=== PATIENT | male | born 1965 | race Caucasian/White ===

== ENCOUNTER 2019-02-09 22:03 | Outpatient (REF) | payer OTHER, SELFPAY ==
[2019-02-09 22:15] LABS: BUN 10 mg/dL (7-18); Calcium 9.1 mg/dL (8.5-10.1); Calculated LDL 103 mg/dL; Chloride 105 mmol/L (98-107); Cholesterol 162 mg/dL (50-200); Glucose 65 mg/dL (70-100); HDL Cholesterol 38 mg/dL (40-60); Potassium 4.4 mmol/L (3.5-5.1); Sodium 142 mmol/L (136-145); Triglyceride 106 mg/dL (30-150)
[2019-02-11 11:03] LABS: PSA, Screening 1.1 ng/ml (0-3.5)
== END 2019-02-09 22:23 ==
LOC: NCHCN 22:03
PROVIDERS: PCP Family Medicine; Visit Provider Family Medicine
DX: Z00.00 Encounter for general adult medical examination without abnormal findings (principal); Z13.228 Encounter for screening for other metabolic disorders; Z13.220 Encounter for screening for lipoid disorders; Z12.5 Encounter for screening for malignant neoplasm of prostate
CPT/HCPCS: 80048; 80061; 84153

== ENCOUNTER 2020-04-14 14:10 | Outpatient (REF) | payer OTHER, SELFPAY ==
[2020-04-14 22:32] LABS: Anion Gap 9.9 mmol/L (3-11); BUN 15 mg/dL (7-18); CO2 27.1 mmol/L (21.0-32.0); Calcium 9.3 mg/dL (8.5-10.1); Calculated LDL 126 mg/dL (<100); Chloride 104 mmol/L (98-107); Cholesterol 195 mg/dL (<200); Glucose 70 mg/dL (74-106); HDL Cholesterol 56 mg/dL (40-60); Potassium 4.1 mmol/L (3.5-5.1); Sodium 141 mmol/L (136-145); Triglyceride 66 mg/dL (<150)
[2020-04-17 16:19] LABS: PSA, Screening 0.9 ng/mL (0-3.5)
== END 2020-04-14 14:30 ==
LOC: NCHCN 14:10
PROVIDERS: PCP Family Medicine; Visit Provider Family Medicine
DX: Z00.00 Encounter for general adult medical examination without abnormal findings (principal); N52.9 Male erectile dysfunction, unspecified; R32 Unspecified urinary incontinence; Z12.5 Encounter for screening for malignant neoplasm of prostate; Z13.220 Encounter for screening for lipoid disorders
CPT/HCPCS: 80048; 80061; 84153

== ENCOUNTER 2021-04-17 13:08 | Outpatient (REF) | payer OTHER, SELFPAY ==
[2021-04-18 17:28] LABS: PSA, Screening 1.2 ng/mL (0.0-3.5)
[2021-04-19 13:39] LABS: Chlamydia Result Negative (Negative); GC Result Negative (Negative)
== END 2021-04-17 13:09 | disposition home or self-care (01) ==
LOC: NCHCN 13:08
PROVIDERS: PCP Family Medicine; Visit Provider Family Medicine
DX: Z11.3 Encounter for screening for infections with a predominantly sexual mode of transmission (principal); Z12.5 Encounter for screening for malignant neoplasm of prostate
CPT/HCPCS: 84153; 87491; 87591

== ENCOUNTER 2021-05-07 17:45 | Outpatient (REF) | payer OTHER, SELFPAY ==
[2021-05-07 21:55] LABS: HCT 38.3 % (40.0-50.0); HGB 12.7 g/dL (13.5-17.5); MCHC 33.2 % (32.0-36.0); MCV 90.3 fL (80-95); MPV 10.5 fL (8.0-11.0); Platelet Count 390 10^3/uL (130-400); RBC 4.24 10^6/uL (4.36-5.78); RDW 15.2 % (11.8-14.1); RDW-SD 50.4 fL
[2021-05-07 22:16] LABS: ALT 20 U/L (16-63); AST 20 U/L (15-37); Albumin 3.9 g/dL (3.4-5.0); Alkaline Phosphatase 58 U/L (46-116); Anion Gap 10.6 mmol/L (3-11); BUN 20 mg/dL (7-18); Bilirubin, Total 0.6 mg/dL (0.2-1.0); CO2 24.4 mmol/L (21.0-32.0); Chloride 104 mmol/L (98-107); Glucose 97 mg/dL (74-106); Potassium 4.4 mmol/L (3.5-5.1); Sodium 139 mmol/L (136-145); TSH 2.07 uIU/mL (0.36-3.74); Total Protein 6.9 g/dL (6.4-8.2)
[2021-05-08 10:28] LABS: Ferritin 23 ng/mL (26-388); Vitamin B12 294 pg/mL (193-986)
[2021-05-08 17:50] LABS: Folate 5.2 ng/mL (See Note)
== END 2021-05-07 17:46 | disposition home or self-care (01) ==
LOC: NCHCN 17:45
PROVIDERS: PCP Family Medicine; Visit Provider Nurse Practitioner Family
DX: F30.9 Manic episode, unspecified (principal); F43.21 Adjustment disorder with depressed mood; F41.1 Generalized anxiety disorder
CPT/HCPCS: 80053; 85027; 82607; 82728; 82746; 84443

== ENCOUNTER 2022-01-23 17:20 | Outpatient (REF) | payer OTHER, SELFPAY ==
[2022-01-24 10:41] LABS: Abs Immature Grans 0.03 10^3/uL (0.0-0.06); Absolute Basophil Count 0.06 10^3/uL (0.0-0.2); Absolute Eosinophil Count 0.14 10^3/uL (0.0-0.7); Absolute Lymphocyte Count 1.86 10^3/uL (1.2-3.4); Absolute Monocyte Count 1.15 10^3/uL (0.1-0.8); Absolute Neutrophil Count 8.06 10^3/uL (1.2-6.7); Basophils % 0.5; ESR 34 mm/hr (0-20); Eosinophils % 1.2; HCT 33.5 % (40.0-50.0); HGB 10.7 g/dL (13.5-17.5); Immature Grans % 0.3; Lymphocytes % 16.5; MCH 31.2 pg (27.0-33.0); MCHC 31.9 % (32.0-36.0); MCV 98 fL (80-95); MPV 10.1 fL (8.0-11.0); Monocytes % 10.2; Neutrophils % 71.3; Platelet Count 533 10^3/uL (130-400); RBC 3.43 10^6/uL (4.36-5.78); RDW 12.7 % (11.8-14.1); RDW-SD 45.5 fL
[2022-01-24 11:12] LABS: C-Reactive Protein 3.16 mg/dL (0.0-0.3)
[2022-01-25 11:53] LABS: Lyme Ab w Rflx to Lyme Confirm Negative (Negative)
== END 2022-01-23 17:21 | disposition home or self-care (01) ==
LOC: NCHCN 17:20
PROVIDERS: PCP Family Medicine; Visit Provider Family Medicine
DX: M35.3 Polymyalgia rheumatica (principal); M13.80 Other specified arthritis, unspecified site
CPT/HCPCS: 85652; 85025; 86140; 86618

== ENCOUNTER 2022-12-24 15:17 | Outpatient (REF) | payer BC, SELFPAY ==
[2022-12-24 21:38] LABS: HCT 44.3 % (40.0-50.0); HGB 15.3 g/dL (13.5-17.5); MCH 32.1 pg (27.0-33.0); MCHC 34.5 % (32.0-36.0); MCV 93 fL (80-95); Platelet Count 324 10^3/uL (130-400); RBC 4.77 10^6/uL (4.36-5.78); RDW 13.1 % (11.8-14.1); WBC 10.14 10^3/uL (4.4-10.8)
[2022-12-24 22:12] LABS: Iron 147 ug/dL (65-175); Total Iron Binding Capacity 242 ug/dL (250-450); Transferrin Sat 61 % (20-55)
[2022-12-24 22:39] LABS: ALT 18 U/L (16-63); AST 17 U/L (15-37); Alkaline Phosphatase 75 U/L (46-116); Anion Gap 8.7 mmol/L (3-11); BUN 16 mg/dL (7-18); Bilirubin, Total 0.7 mg/dL (0.2-1.0); CO2 25.3 mmol/L (21.0-32.0); CREATININE 1.2 mg/dL (0.70-1.30); Calcium 9.5 mg/dL (8.5-10.1); Calculated LDL 144 mg/dL (<100); Chloride 106 mmol/L (98-107); Cholesterol 222 mg/dL (<200); Estimated GFR 70.98 (mL/min/1.73m2); Ferritin 55 ng/mL (26-388); Glucose 99 mg/dL (74-106); HDL Cholesterol 61 mg/dL (40-60); Potassium 3.9 mmol/L (3.5-5.1); Sodium 140 mmol/L (136-145); Total Protein 7.4 g/dL (6.4-8.2); Triglyceride 88 mg/dL (<150); Vitamin B12 413 pg/mL (193-986)
[2022-12-25 18:54] LABS: PSA, Screening 1.1 ng/mL (<=3.5)
== END 2022-12-24 15:18 | disposition home or self-care (01) ==
LOC: NCHCN 15:17
PROVIDERS: PCP Family Medicine; Visit Provider Family Medicine
DX: Z00.00 Encounter for general adult medical examination without abnormal findings (principal); D64.9 Anemia, unspecified; E78.5 Hyperlipidemia, unspecified; E53.8 Deficiency of other specified B group vitamins
CPT/HCPCS: 80053; 80061; 84153; 85027; 82607; 82728; 83540; 83550; 84443